=== PATIENT | male | born 1945 | race Caucasian/White ===

== ENCOUNTER → 2017-08-21 | Day surgery (SDC) | payer MEDICARE ==
[~2017-08-21] MED LIST: ALLO100T PO; AMBI10TA PO; ASPI81TA23 PO; CARV12.5 PO; EFFE150C PO; FURO1TAB60 PO; ISOS20TA PO; LACTATED RINGER'S 1000 ML INJ 1,000 ML ONE; LEVO50TA4 PO; LISI-519 PO; NITR0.4S SL; POTA10CA PO; PROPOFOL 500 MG/50 ML BTL IV ONE; ROSU20 PO; TAMS0.4C4 PO; VITA100018 PO
--- NOTE | 2017-08-21 11:54 | GIPROC ---
[facility] [address], [address] COLONOSCOPY PROCEDURE REPORT EXAM DATE: 08/21/2017 PATIENT NAME: Edward Mack MR #: [id number] BIRTHDATE: 1945 ENDOSCOPIST: Rafael Hernandez MD ORDER #: [id number] RENEWALS SPECIALIST: Latha Bhatti RN STATUS: outpatient INDICATIONS: The patient is a 71 yr old male here for a colonoscopy due to high risk patient with personal history of colonic polyps PROCEDURE PERFORMED: Colonoscopy, surveillance MEDICATIONS: None and Per Anesthesia. PREP QUALITY: good ESTIMATED BLOOD LOSS: None CONSENT: The patient understands the risks and benefits of the procedure and understands that these risks include, but are not limited to: sedation, allergic reaction, infection, perforation and/or bleeding. Alternative means of evaluation and treatment include, among others: physical exam, x-rays, and/or surgical intervention. The patient elects to proceed with this endoscopic procedure. medical equipment was checked for proper function. Hand hygiene and appropriate measures for infection prevention was taken. After the risks, benefits and alternatives of the procedure were thoroughly explained, Informed consent was verified, confirmed and timeout was successfully executed by the treatment team. A digital exam revealed no abnormalities of the rectum The EC-[id number] ([id number]) endoscope was introduced through the anus and advanced to the cecum, which was identified by both the appendix and ileocecal valve. The instrument was then slowly withdrawn as the colon was fully examined. COLON FINDINGS: Mild diverticulosis was noted in the sigmoid colon. The colon mucosa was otherwise normal. Retroflexed views revealed no abnormalities The scope was then completely withdrawn from the patient and the procedure terminated. PROCEDURE WITHDRAWAL TIME:9.6minutes ADVERSE EVENTS: There were no complications. IMPRESSIONS: 1. Mild diverticulosis was noted in the sigmoid colon 2. The colon mucosa was otherwise normal 3. Retroflexed views revealed no abnormalities 4. Revealed no abnormalities of the rectum RECOMMENDATIONS: 1. Follow-up: GI Clinic PRN 2. Yearly hemoccult 3. High fiber diet RECALL: Return 5 years Colonoscopy Rafael Hernandez MD eSigned: Rafael Hernandez MD 08/21/2017 11:54 AM cc: Mk Hurst M.D.
--- NOTE | 2017-08-21 11:57 | GIPROC ---
[facility] [address] [place], [address] EGD PROCEDURE REPORT EXAM DATE: 08/21/2017 PATIENT NAME: Edward Mack MR #: [id number] BIRTHDATE: 1945 ATTENDING: Rafael Hernandez MD ORDER #: [id number] TOE CLOSING MACHINE TENDER: Latha Bhatti RN STATUS: outpatient INDICATIONS: The patient is a 71 yr old male here for an EGD due to history of esophageal reflux and dysphagia PROCEDURE PERFORMED: EGD w/ biopsy MEDICATIONS: None, Per Anesthesia, None, and Per Anesthesia. TOPICAL ANESTHETIC: CONSENT: The patient understands the risks and benefits of the procedure and understands that these risks include, but are not limited to: sedation, allergic reaction, infection, perforation and/or bleeding. Alternative means of evaluation and treatment include, among others: physical exam, x-rays, and/or surgical intervention. The patient elects to proceed with this endoscopic procedure. medical equipment was checked for proper function. Hand hygiene and appropriate measures for infection prevention was taken. After the risks, benefits and alternatives of the procedure were thoroughly explained, Informed consent was verified, confirmed and timeout was successfully executed by the treatment team. The patient was anesthetized with topical anesthesia and the EC-3490Li ([id number]) endoscope was introduced through the mouth and advanced to the second portion of the duodenum. Retroflexed views revealed no abnormalities The gastroscope was then slowly withdrawn and removed. ESOPHAGUS: The mucosa of the esophagus appeared normal. Multiple biopsies were performed. The endoscopy was otherwise normal. STOMACH: There was erythematous moderate gastritis in the gastric antrum. Multiple biopsies were performed. ADVERSE EVENTS: There were no complications. IMPRESSIONS: 1. The esophagus appeared normal; multiple biopsies were performed 2. Normal endoscopy otherwise 3. There was erythematous gastritis in the gastric antrum; multiple biopsies were performed 4. Retroflexed views revealed no abnormalities RECOMMENDATIONS: 1. Await biopsy results. Biopsy results will not be ready for 7-10 days. If you don't hear from us in two weeks, call our office for biopsy results. 2. Follow-up: GI clinic 3 week(s) 3. Continue PPI PATIENT CONDITION: stable DISPOSITION: Home REPEAT EXAM: Rafael Hernandez MD eSigned: Rafael Hernandez MD 08/21/2017 11:57 AM cc: Mk Hurst M.D.
== END | disposition home or self-care (01) ==
LOC: ESDC 08:15
PROVIDERS: ATTEND Internal Medicine Gastroenterology
DX: Z12.11 Encounter for screening for malignant neoplasm of colon (principal); Z86.010 Personal history of colon polyps; K57.90 Diverticulosis of intestine, part unspecified, without perforation or abscess without bleeding; K21.9 Gastro-esophageal reflux disease without esophagitis; R13.10 Dysphagia, unspecified; K29.70 Gastritis, unspecified, without bleeding
CPT/HCPCS: 00813; 43239; 45378; 88305; J3010; J7120